=== PATIENT | male | born 1980 | race Caucasian/White ===

== ENCOUNTER 2018-07-04 19:33 | Emergency (ER) | payer OTHER ==
[2018-07-04] MEDS ORDERED: ONDANSETRON 4 MG/2 ML VIAL ONE (20:49)
[2018-07-04] MEDS ORDERED: FAMOTIDINE 20 MG/2 ML VIAL IV ONE (20:49)
[2018-07-04] MEDS ORDERED: NA CHLORIDE 0.9% 1,000 ML ONE (20:49)
[2018-07-04 21:11] LABS: Absolute Lymphocytes (CBC) 2.1 K/uL (0.7-4.9); Absolute Monocytes 0.7 K/uL (0.1-1.3); Absolute Neutrophil 6.1 K/uL (1.8-8.0); Basophils % 0.7 % (0-1.3); Eosinophils % 3.2 % (0-4.4); Lymphocytes % 22.6 % (15.3-44.8); MCH 32.2 pg (27.0-35.0); MPV 8.1 fL (7.6-11.3); Monocytes % 7.4 % (3.3-12.3); RBC Red Blood Cell Count 5.05 M/uL (4.33-5.43)
--- NOTE | 2018-07-04 21:15 | RAD REPORT ---
EXAM DESCRIPTION: US - Abdomen Exam Limited - 07/04/2018 8:47 pm CLINICAL HISTORY: Abdominal pain, epigastric pain COMPARISON: None. FINDINGS: No gallstones, sludge or other abnormalities within the gallbladder lumen. There is no wal l thickening or pericholecystic fluid. No common duct stone or biliary tree dilatation identified. Partially imaged liver shows a coarsened increased echogenicity. This may reflect diffuse fatty infil tration. IMPRESSION: Normal gallbladder and biliary tree ultrasound. Questionable fatty infiltration of a partially imaged liver.
[2018-07-04 21:27] LABS: Bilirubin Direct 0.2 mg/dL (0-0.2); Bilirubin Total 0.6 mg/dL (0.2-1.0); Protein, Total 7.6 g/dL (6.4-8.2)
[2018-07-04 21:31] LABS: Urine Bacteria <20 /HPF (NONE SEEN); Urine RBC <5 /HPF (NONE SEEN)
[2018-07-04 21:32] LABS: Urine Blood NEGATIVE (NEG); Urine Glucose NEGATIVE (NEG); Urine Protein NEGATIVE (NEG); Urine pH 6.5 (5.0-7.0)
[2018-07-04 21:32] LABS: Urine Amorphous Sediment 2+ /HPF (NONE SEEN); Urine Culture Reflex Order NOT NEEDED; Urine Mucus 1+ /HPF (NONE SEEN)
--- NOTE | 2018-07-04 22:11 | RAD REPORT ---
EXAM DESCRIPTION: CT - Abdomen Pelvis W Contrast - 07/04/2018 9:48 pm CLINICAL HISTORY: Abdominal pain COMPARISON: None. TECHNIQUE: Biphasic, helical CT imaging of the abdomen and pelvis was performed following 100 ml non -ionic IV contrast. No oral contrast. All CT scans are performed using dose optimization technique as appropriate and may include automated exposure control or mA/KV adjustment according to patient size. FINDINGS: No suspicious findings in the lung bases. Diffuse fatty infiltration of the liver present. No focal liver lesion. Spleen and pancreas are unrem arkable. Gallbladder and biliary tree are also without suspicious finding. Symmetric renal function is seen with no hydronephrosis or suspicious renal mass. No pyelonephritis o r acute renal parenchymal process. No adrenal abnormality. Contracted urinary bladder shows no suspic ious finding. Prostate gland and seminal vesicles are normal. No dilated bowel loops or bowel wall thickening. Appendix is normal. No free air, free fluid or infla mmatory stranding. No mass or bulky lymphadenopathy. Small bilateral fat filled inguinal hernias are present. No suspicious bony findings. IMPRESSION: Contrast enhanced CT abdomen and pelvis showing no significant or suspicious finding. Mild diffuse fatty infiltration of the liver.
--- NOTE | 2018-07-04 22:41 | ER ---
Nurse's Notes [facility] Name: Lanre Garcia Age: 38 yrs Sex: Male : 1980 Arrival Date: 07/04/2018 Time: 19:49 Bed 17 Private MD: Diagnosis: Unspecified abdominal pain Presentation: 07/04 19:49 Presenting complaint: Patient states: Cough, congestion, upper abdominal pain, and aj nausea that started today. Transition of care: patient was not received from another setting of care. Onset of symptoms was July 04, 2018. Risk Assessment: Do you want to hurt yourself or someone else? Patient reports no desire to harm self or others. Initial Sepsis Screen: Does the patient meet any 2 criteria? No. Patient's initial sepsis screen is negative. Does the patient have a suspected source of infection? No. Patient's initial sepsis screen is negative. Care prior to arrival: None. 19:49 Method Of Arrival: Ambulatory aj 19:49 Acuity: UMA 3 aj Triage Assessment: 19:50 General: Appears in no apparent distress. comfortable, Behavior is calm, cooperative, aj appropriate for age. Pain: Complains of pain in right upper quadrant and left upper quadrant. EENT: Reports nasal congestion nasal discharge. Respiratory: Reports cough that is Airway is patent Respiratory effort is even, unlabored, Respiratory pattern is regular, symmetrical, Breath sounds are clear bilaterally. GI: Reports upper abdominal pain, nausea. Derm: Skin is intact, is healthy with good turgor, Skin is pink, warm \T\ dry. normal. Historical: - Allergies: 19:50 No Known Allergies; aj - Home Meds: 19:50 None [Active]; aj - PMHx: 19:50 None; aj - PSHx: 19:50 None; aj - Immunization history:: Flu vaccine is not up to date. - Social history:: Smoking status: Patient/guardian denies using tobacco. - Ebola Screening: : Patient negative for fever greater than or equal to 101.5 degrees Fahrenheit, and additional compatible Ebola Virus Disease symptoms Patient denies exposure to infectious person Patient denies travel to an Ebola-affected area in the 21 days before illness onset No symptoms or risks identified at this time. Screenin:22 Abuse screen: Denies threats or abuse. Nutritional screening: No deficits noted. jd3 Tuberculosis screening: No symptoms or risk factors identified. Fall Risk Ambulatory Aid- None/Bed Rest/Nurse Assist (0 pts). Gait- Normal/Bed Rest/Wheelchair (0 pts) Mental Status- Oriented to own ability (0 pts). Total Morris Fall Scale indicates No Risk (0-24 pts). Assessment: 20:26 General: Appears in no apparent distress. uncomfortable, Behavior is calm, cooperative, jd3 appropriate for age. Pain: Complains of pain in right upper quadrant and left upper quadrant Quality of pain is described as aching. Neuro: Level of Consciousness is awake, alert, obeys commands, Oriented to person, place, time, situation. Cardiovascular: Heart tones S1 S2 present Capillary refill < 3 seconds Patient's skin is warm and dry. Respiratory: Airway is patent Respiratory effort is even, unlabored, Respiratory pattern is regular, symmetrical, Breath sounds are clear bilaterally. GI: Abdomen is round non-distended, Bowel sounds present X 4 quads. Abd is soft X 4 quads Abdomen is tender to palpation in right upper quadrant and left upper quadrant. : No signs and/or symptoms were reported regarding the genitourinary system. EENT: No signs and/or symptoms were reported regarding the EENT system. Derm: Skin is intact, Skin is dry, Skin is normal, Skin temperature is warm. Musculoskeletal: Circulation, motion, and sensation intact. Range of motion: intact in all extremities. 21:17 Reassessment: Patient appears in no apparent distress at this time. Patient and/or jd3 family updated on plan of care and expected duration. Pain level reassessed. Patient is alert, oriented x 3, equal unlabored respirations, skin warm/dry/pink. 21:38 Reassessment: Patient appears in no apparent distress at this time. Patient and/or jd3 family updated on plan of care and expected duration. Pain level reassessed. Patient is alert, oriented x 3, equal unlabored respirations, skin warm/dry/pink. 22:41 Reassessment: Patient appears in no apparent distress at this time. Patient and/or jd3 family updated on plan of care and expected duration. Pain level reassessed. Patient is alert, oriented x 3, equal unlabored respirations, skin warm/dry/pink. 22:51 Reassessment: Patient appears in no apparent distress at this time. Patient and/or jd3 family updated on plan of care and expected duration. Pain level reassessed. Patient is alert, oriented x 3, equal unlabored respirations, skin warm/dry/pink. Vital Signs: 19:50 BP 118 / 82; Pulse 69; Resp 19; Temp 99.4(O); Pulse Ox 98% on R/A; Weight 120.2 kg; aj Height 6 ft. 0 in. (182.88 cm); 21:38 BP 119 / 76; Pulse 71; Resp 16 S; Pulse Ox 100% on R/A; jd3 22:42 BP 118 / 78; Pulse 72; Resp 17 S; Pulse Ox 99% on R/A; jd3 19:50 Body Mass Index 35.94 (120.20 kg, 182.88 cm) aj ED Course: 19:49 Patient arrived in ED. aj 19:50 Triage completed. aj 19:50 Arm band placed on left wrist. Patient placed in waiting room, Patient notified of wait aj time. Labs ordered per protocol. 20:14 Matheus Hoskins RN is Primary Nurse. jd3 20:14 Castro Escamilla PA is PHCP. cp 20:14 Rahat Fuller MD is Attending Physician. cp 20:22 Patient has correct armband on for positive identification. Bed in low position. Call jd3 light in reach. Side rails up X 1. Adult w/ patient. 20:48 US Abdomen Limited: RUQ/epigastric In Process Unspecified. EDMS 21:17 Inserted saline lock: 20 gauge in right antecubital area, using aseptic technique. jd3 Blood collected. placed by Replaced by [facility]. 21:[address] via wheelchair. nj 21:40 XRAY Chest (1 view) In Process Unspecified. EDMS 21:49 CT Abd/Pelvis - W/Contrast: no oral contrast In Process Unspecified. EDMS 21:56 PHCP role handed off by Castro Escamilla PA pm1 21:56 Christian Sanchez NP is PHCP. pm1 22:42 No provider procedures requiring assistance completed. jd3 22:50 IV discontinued, intact, bleeding controlled, No redness/swelling at site. Pressure jd3 dressing applied. Administered Medications: 21:11 Drug: Zofran 4 mg Route: IVP; Site: right antecubital; jd3 22:16 Follow up: Response: No adverse reaction jd3 21:11 Drug: Pepcid 20 mg Route: IVP; Site: right antecubital; jd3 22:16 Follow up: Response: No adverse reaction jd3 21:11 Drug: NS 0.9% 1000 ml Route: IV; Rate: 1 bolus; Site: right antecubital; jd3 22:51 Follow up: Response: No adverse reaction; IV Status: Completed infusion; IV Intake: jd3 1000ml 22:44 Drug: GI Cocktail without - (Maalox Suspension 30 ml, Lidocaine Liquid 2 % 15 ea ml) Route: PO; 22:51 Follow up: Response: Medication administered at discharge. jd3 Intake: 22:51 IV: 1000ml; Total: 1000ml. jd3 Outcome: 22:40 Discharge ordered by . pm1 22:50 Discharged to home ambulatory, with family. jd3 22:50 Condition: stable 22:50 Discharge instructions given to patient, family, Instructed on discharge instructions, follow up and referral plans. medication usage, Demonstrated understanding of instructions, follow-up care, medications, Prescriptions given X 2. 22:51 Patient left the ED. jd3 Signatures: Dispatcher [employer] EDMS Enedina Cunningham RN RN Castro Jain PA PA cp Marinas, Patrick, SONIA STUDIO OPERATIONS ENGINEER IN CHARGE pm1 Reddy Tan Elena, RN RN ea Davies, Jonathon, RN RN jd3
--- NOTE | 2018-07-04 22:41 | EDPHYS ---
Physician Documentation [facility] Name: Lanre Garcia Age: 38 yrs Sex: Male : 1980 Arrival Date: 07/04/2018 Time: 19:49 Bed 17 Private MD: ED Physician Rahat Fuller HPI: 07/04 20:00 This 38 yrs old Male presents to ER via Ambulatory with complaints of Cough, cp Congestion, Abdominal Pain, Nausea. 20:00 The patient or guardian reports cough, that is intermittent, with no sputum. Onset: The cp symptoms/episode began/occurred 1-2 weeks. 20:00 Severity of symptoms: in the emergency department the symptoms are unchanged. cp 20:00 The patient presents with abdominal pain in the epigastric area. cp 20:00 Onset: The symptoms/episode began/occurred today. The symptoms do not radiate. cp Associated signs and symptoms: Pertinent positives: nausea, Pertinent negatives: anorexia, chest pain, constipation, diarrhea, fever, testicular pain, vomiting. The symptoms are described as sharp. Historical: - Allergies: 19:50 No Known Allergies; aj - Home Meds: 19:50 None [Active]; aj - PMHx: 19:50 None; aj - PSHx: 19:50 None; aj - Immunization history:: Flu vaccine is not up to date. - Social history:: Smoking status: Patient/guardian denies using tobacco. - Ebola Screening: : Patient negative for fever greater than or equal to 101.5 degrees Fahrenheit, and additional compatible Ebola Virus Disease symptoms Patient denies exposure to infectious person Patient denies travel to an Ebola-affected area in the 21 days before illness onset No symptoms or risks identified at this time. ROS: 20:05 Constitutional: Negative for body aches, chills, fever, poor PO intake. cp 20:05 Eyes: Negative for injury, pain, redness, and discharge. cp 20:05 ENT: Negative for drainage from ear(s), ear pain, sore throat, difficulty swallowing, difficulty handling secretions. 20:05 Cardiovascular: Negative for chest pain, edema, palpitations. 20:05 Respiratory: Positive for cough, with no reported sputum, Negative for shortness of breath, wheezing. 20:05 Abdomen/GI: Positive for abdominal pain, nausea, Negative for vomiting, diarrhea, constipation, anorexia, black/tarry stool, rectal bleeding. 20:05 Back: Negative for pain at rest, pain with movement, radiated pain. 20:05 : Negative for urinary symptoms, flank pain. 20:05 Skin: Negative for cellulitis, rash. 20:05 Neuro: Negative for altered mental status, headache, weakness. 20:05 All other systems are negative. Exam: 20:10 Constitutional: The patient appears in no acute distress, alert, awake, cp non-diaphoretic, non-toxic, well developed, well nourished. 20:10 Head/Face: Normocephalic, atraumatic. cp 20:10 Eyes: Periorbital structures: appear normal, Conjunctiva: normal, no exudate, no injection, Sclera: no appreciated abnormality, Lids and lashes: appear normal, bilaterally. 20:10 ENT: External ear(s): are unremarkable, Ear canal(s): are normal, clear, TM's: bulging, is not appreciated, bilaterally, dullness, bilaterally, erythema, is not appreciated, bilaterally, Nose: is normal, Mouth: Lips: moist, Oral mucosa: pink and intact, moist, Posterior pharynx: is normal, airway is patent, no erythema, no exudate. 20:10 Neck: ROM/movement: is normal, is supple, without pain, no range of motions limitations, no meningismus, no nuchal rigidity, Lymph nodes: no appreciated lymphadenopathy. 20:10 Chest/axilla: Inspection: normal, Palpation: is normal, no crepitus, no tenderness. 20:10 Cardiovascular: Rate: normal, Rhythm: regular, Edema: is not appreciated, JVD: is not appreciated. 20:10 Respiratory: the patient does not display signs of respiratory distress, Respirations: normal, no use of accessory muscles, no retractions, no splinting, no tachypnea, labored breathing, is not present, Breath sounds: are clear throughout, no decreased breath sounds, no stridor, no wheezing. 20:10 Abdomen/GI: Inspection: abdomen appears normal, Bowel sounds: active, all quadrants, Palpation: soft, in all quadrants, moderate abdominal tenderness, in the epigastric area and right upper quadrant, rebound tenderness, is not appreciated, involuntary guarding, is not appreciated. 20:10 Back: CVA tenderness, is absent. 20:10 Skin: cellulitis, is not appreciated, no rash present. 20:10 Neuro: Orientation: to person, place \T\ time. Mentation: is normal, Cerebellar function: is grossly normal, Motor: moves all fours, strength is normal, Sensation: is normal. Vital Signs: 19:50 BP 118 / 82; Pulse 69; Resp 19; Temp 99.4(O); Pulse Ox 98% on R/A; Weight 120.2 kg; aj Height 6 ft. 0 in. (182.88 cm); 21:38 BP 119 / 76; Pulse 71; Resp 16 S; Pulse Ox 100% on R/A; jd3 22:42 BP 118 / 78; Pulse 72; Resp 17 S; Pulse Ox 99% on R/A; jd3 19:50 Body Mass Index 35.94 (120.20 kg, 182.88 cm) aj MDM: 20:14 Patient medically screened. cp 20:30 Differential Diagnosis: Bronchitis Influenza Upper Respiratory Infection Pneumonia cp Other cholecystitis, gastritis. 22:39 Data reviewed: vital signs. Data interpreted: Pulse oximetry: on room air is 100 %. pm1 Interpretation: normal. Counseling: I had a detailed discussion with the patient and/or guardian regarding: the historical points, exam findings, and any diagnostic results supporting the discharge/admit diagnosis, lab results, radiology results, the need for outpatient follow up, for definitive care, a booster pump oiler, to return to the emergency department if symptoms worsen or persist or if there are any questions or concerns that arise at home. 07/04 19:53 Order name: Flu; Complete Time: 20:55 07/04 19:53 Order name: Strep; Complete Time: 20:55 07/04 20:20 Order name: Throat Culture EDMD 07/04 20:26 Order name: Basic Metabolic Panel; Complete Time: 21:48 cp 07/04 21:48 Interpretation: Normal except: GFR 84. cp 07/04 20:26 Order name: CBC with Diff; Complete Time: 21:48 cp 07/04 20:26 Order name: Creatinine for Radiology; Complete Time: 21:48 07/04 20:26 Order name: Hepatic Function; Complete Time: 21:48 07/04 21:49 Interpretation: Normal except: GLOB 3.6. cp 07/04 20:26 Order name: Lipase; Complete Time: 21:48 cp 07/04 21:49 Interpretation: Within normal limits: LIP 113. cp 07/04 20:26 Order name: Urine Microscopic Only; Complete Time: 21:48 cp 07/04 21:49 Interpretation: Normal except: SQEPI 5-10; AMORPH 2+. cp 07/04 20:28 Order name: US Abdomen Limited: RUQ/epigastric; Complete Time: 21:48 cp 07/04 20:55 Order name: CT Abd/Pelvis - W/Contrast: no oral contrast; Complete Time: 22:21 cp 07/04 21:14 Order name: Urine Dipstick--Ancillary (enter results); Complete Time: 21:48 gm 07/04 21:21 Order name: XRAY Chest (1 view) 07/04 20:26 Order name: IV Saline Lock; Complete Time: 21:18 cp 07/04 20:26 Order name: Labs collected and sent; Complete Time: 21:18 cp 07/04 20:26 Order name: Urine Dipstick-Ancillary (obtain specimen); Complete Time: 21:18 cp Administered Medications: 21:11 Drug: Zofran 4 mg Route: IVP; Site: right antecubital; jd3 22:16 Follow up: Response: No adverse reaction jd3 21:11 Drug: Pepcid 20 mg Route: IVP; Site: right antecubital; jd3 22:16 Follow up: Response: No adverse reaction jd3 21:11 Drug: NS 0.9% 1000 ml Route: IV; Rate: 1 bolus; Site: right antecubital; jd3 22:51 Follow up: Response: No adverse reaction; IV Status: Completed infusion; IV Intake: jd3 1000ml 22:44 Drug: GI Cocktail without - (Maalox Suspension 30 ml, Lidocaine Liquid 2 % 15 ea ml) Route: PO; 22:51 Follow up: Response: Medication administered at discharge. jd3 Disposition: 07/05 04:28 Co-signature as Attending Physician, Rahat Fuller MD I agree with the assessment and tw4 plan of care. Disposition: 07/04/18 22:40 Discharged to Home. Impression: Unspecified abdominal pain. - Condition is Stable. - Discharge Instructions: Abdominal Pain, Adult. - Prescriptions for Pepcid 20 mg Oral Tablet - take 1 tablet by ORAL route every 12 hours for 10 days; 20 tablet. Zofran 4 mg Oral Tablet - take 1 tablet by ORAL route every 12 hours As needed; 20 tablet. - Medication Reconciliation Form, Thank You Letter form. - Follow up: Emergency Department; When: As needed; Reason: Worsening of condition. Follow up: Private Physician; When: 2 - 3 days; Reason: Recheck today's complaints, Continuance of care, Re-evaluation by your physician. - Problem is new. - Symptoms have improved. Signatures: Dispatcher [employer] EDMS Enedina Cunningham, RN RN Castro Jain PA PA cp Christian Sanchez, SONIA IT SECURITY ARCHITECT pm1 Mitzi Neil RN RN Matheus Redding RN RN jd3 Rahat Fuller MD MD tw4 Corrections: (The following items were deleted from the chart) 07/04 22:51 22:40 07/04/2018 22:40 Discharged to Home. Impression: Unspecified abdominal pain. jd3 Condition is Stable. Forms are Medication Reconciliation Form, Thank You Letter, Antibiotic Education, Prescription Opioid Use. Follow up: Emergency Department; When: As needed; Reason: Worsening of condition. Follow up: Private Physician; When: 2 - 3 days; Reason: Recheck today's complaints, Continuance of care, Re-evaluation by your physician. Problem is new. Symptoms have improved. pm1
[2018-07-04] MEDS ORDERED: LIDOCAINE VISCOUS 2% SOLN 15 ML UDC ONE (22:50)
[2018-07-04] MEDS ORDERED: MAGNE/ALUM HYDROXD 30 ML UCUP ONE (22:50)
--- NOTE | 2018-07-05 07:34 | RAD REPORT ---
EXAM DESCRIPTION: RAD - Chest Single View - 07/04/2018 9:40 pm CLINICAL HISTORY: Cough and congestion, upper abdominal pain COMPARISON: None. TECHNIQUE: AP portable chest image was obtained 2135 hours . FINDINGS: Lungs are clear. Heart and vasculature are normal. No measurable pleural effusion and no p neumothorax. No acute bony abnormality seen. No acute aortic findings suspected. IMPRESSION: No acute cardiopulmonary process.
== END 2018-07-04 22:51 | disposition home or self-care (01) ==
LOC: ER 19:33
DX: R10.13 Epigastric pain (principal)
CPT/HCPCS: 36415; 71045; 74177; 76705; 80048; 80076; 81003; 81015; 83690; 85025; 87070; 87081; 87804; 96361; 96374; 96375; 99284; J2405; J7030; Q9967

== ENCOUNTER 2024-10-02 07:04 | Emergency (ER) | payer OTHER ==
--- OUTSIDE RECORDS SUMMARY | 2024-10-02 07:09 | XMS REPORT | Continuity of Care Document ---
Author Name Unknown Address [address] [facility] [address] [place] [address] [facility] Address [address] [facility]. [address] [place] [address] Care Team Providers Care Development Scientist Name Role Phone SERGEY CHAIREZ Primary Care Physician Unavailab Ousmane Mehta Attending Clinician Unavailable MARIAJOSE CHAND Attending Clinician Unavailable Mj Khan Attending Clinician [phone] Unknown, Attending Attending Clinician Unavailab MJ Barrow Attending Clinician Unavailable Sergey Chairez MD Attending Clinician [phone] SERGEY CHAIREZ Attending Clinician Unavailable Lab, Chema Cbc Attending Clinician Unavailable Mariely Marcus MD Attending Clinician [phone] MARIELY MARCUS Attending Clinician Unavailable KIMBERLYN ROSENBERG Attending Clinician Unavailable OLEGARIO MEEK Attending Clinician Unavailable Sergey Chairez MD Attending Clinician [phone] ENEDINA HENDERSON Attending Clinician Unavailable Enedina Henderson MD Attending Clinician [phone] Unknown, Attending Attending Clinician Unavailab martha Doctor Unassigned, Kulm Attending Clinician U FAYE Moses Attending Clinician Unavailable RENY BIRD Attending Clinician Unavailable Reny Lubin Attending Clinician [phone] Magdalena PLAZA, Faye Greco Attending Clinician [phone] GUILLERMINA SMALL Attending Clinician UnaJOSÉ LUIS Valle Attending Clinician Unavaila mat Small DPM, Gulilermina A Attending Clinician + LEATHA PERALTA Attending Clinician Unavailable Lab, Ang - Db Attending Clinician Unavailable Kathryn LIQUEFACTION AND REGASIFICATION HELPER, Leatha Attending Clinician [phone] Otilio CANVAS GOODS FABRICATOR, Joseph Monet Attending Clinician Unavaila mat Calderón PT, Vanna Valentino Attending Clinician Unavailab martha Whalen PABenita Attending Clinician [phone] BENITA WHALEN Attending Clinician Unavailable NIA MON Attending Clinician Unavailable Only, Charlette Fam Cbc Test Attending Clinician Unamarcio Romero MD, Lela Sue Attending Clinician + [phone] LELA ROMERO Attending Clinician UnaJESICA Nevarez Attending Clinician Unavailable Lab, Adc Fam Pob I Attending Clinician Unavailab martha Vazquez LIQUEFACTION AND REGASIFICATION HELPER, Drea Attending Clinician [phone] Cuauhtemoc RN, Deysi Dillard Attending Clinician Unavailab martha Pettyb1, [facility] Attending Clinician Unagretta ailable Payers Payer Name Policy Type Policy Number Effective Date Expirati on Date Source [employer] 53 [id number] [facility] M[employer]IPLAN GENERIC [id number] 2018 00:00:00 Problems Condition Name Condition Details Condition Category Status Onset Date Resolution Date Last Treatment Date Treating Clinician Comments Source Type 2 diabetes mellitus without complicati on, without long-term current use of insulin Type 2 diabetes mellitus without complicati on, without long-term current use of insulin Disease Active 03-20 00:00: 00 [facility] [place] [facility] Upper respirator y tract infection, unspecifie d type Upper respirator y tract infection, unspecifie d type Disease Active 11-13 00:00: 00 [facility] [place] [facility] Sore throat Sore throat Disease Active 11-13 00:00: 00 [facility] [place] [facility] Nausea Nausea Disease Active 424 00:00: 00 [facility] [place] [facility] Attention deficit disorder (ADD) without hyperactiv ity Attention deficit disorder (ADD) without hyperactiv ity Disease Active 3 00:00: 00 [facility] [place] [facility] Hypogonadi sm in male Hypogonadi sm in male Disease Active 3-23 00:00: 00 [facility] [place] [facility] Chest pain with minimal risk for cardiac etiology Chest pain with minimal risk for cardiac etiology Disease Active 2014-07 0-04 00:00: 00 [facility] [place] [facility] [id number] Obesity, Class III, BMI 40-49.9 (morbid obesity) Problem [facility] [id number] RLS (restless legs syndrome) Problem [facility] Testicular hypofuncti on Low testostero ne in male Problem [facility] Allergies, Adverse Reactions, Alerts Allergy Name Allergy Type Status Severity Reaction(s) Onset Date Inactive Date Treating Clinician Comments Source ACETAMIN OPHEN-CO DEINE DRUG Active [facility] 2023-07 00:00: 00 [facility] [place] [facility] Acetamin ophen-Co deine Propensi ty to adverse reaction s to drug Active [facility] 2023-07 00:00: 00 [facility] [place] [facility] NO KNOWN ALLERGIE S Drug Class Active [facility] Social History Social Habit Start Date Stop Date Quantity Comments Source History of Tobacco Use [facility] Sex Assigned At [facility] Gender identity [facility] Alcoholic beverage intake 2024-07-07 00:00:00 2024-07-07 00:00:00 Current non-drinker of alcohol (finding) [facility] Tobacco use and exposure 2024-01-17 00:00:00 2024-01-17 00:00:00 Smokeless tobacco non-user [facility] Cigarettes smoked current (pack per day) - Reported 2024-01-17 00:00:00 2024-01-17 00:00:00 [facility] Cigarette pack-years 2024-01-17 00:00:00 2024-01-17 00:00:00 [facility] Alcohol intake 2023-08-24 00:00:00 2023-08-24 00:00:00 Current non-drinker of alcohol (finding) [facility] History of Social function 2023-04-16 00:00:00 2023-04-16 00:00:00 [facility] Exposure to SARS-CoV-2 (event) 2022-12-03 00:00:00 2022-12-13 13:27:00 Not sure [facility] Smoking Status Start Date Stop Date Source Never Smoker [facility] Ex-smoker 2024-01-17 00:00:00 2024-01-17 00:00:00 [facility] Medications Ordered Medication Name Filled Medication Name Start Date Stop Date Current Medication? Ordering Clinician Indication Dosage Frequency Signature (SIG) Comments Components Source Amoxicillin -Pot Clavulanate 875-125 MG Amoxicillin -Pot Clavulanate 875-125 MG 09-26 00:00: 00 No 1{table t} BID Amoxicilli n-Pot Clavulanat e 875-125 MG amoxicillin 500 mg tablet 2023-07 00:00: 00 07-18 05:59 :00 Yes [id number] 500mg Take 1 tablet by mouth in the morning and 1 tablet in the evening. Do all this for 10 days. [facility] [place] [facility] ofloxacin 0.3 % otic drops 2023-07 00:00: 00 07-15 05:59 :00 Yes [id number] 5[drp] Place 5 Drops in right ear in the morning and 5 Drops in the evening. Do all this for 7 days. [facility] testosteron e cypionate 200 mg/mL injection 2023-07 00:00: 00 Yes [id number] 200mg 1 mL by Intramuscu lar route every 2 (two) weeks. [facility] testosteron e cypionate (DEPO-TESTO STERONE) injection 200 mg 03-20 21:00: 00 03-20 20:19 :00 No [id number] 200mg 200 mg, Intramuscu lar, ONCE, 1 dose, On Sun03/20/24 at 1600, Routine [facility] semaglutide (OZEMPIC) 0.25 mg or 0.5 mg (2 mg/3 mL) PnIj 03-20 00:00: 00 Yes [id number] .25mg inject 0.25 mg under the skin weekly. [facility] testosteron e cypionate 200 mg/mL injection 03-20 00:00: 00 06-13 00:00 :00 No [id number] 200mg 1 mL by Intramuscu lar route every 2 (two) weeks. [facility] tadalafiL 20 mg tablet 03-14 00:00: 00 Yes [id number] 20mg Take 1 tablet by mouth as needed for Erectile dysfunctio n. [facility] diclofenac 75 mg EC tablet 01-16 00:00: 00 Yes [id number] 75mg Take 1 tablet by mouth in the morning and 1 tablet at noon and 1 tablet in the evening. Take with meals. [facility] methylPREDN ISolone (MEDROL, ZENA,) 4 mg tablets 01-16 00:00: 00 03-20 00:00 :00 No [id number] Take by mouth SEE-INSTRU CTIONS. follow package directions [facility] SILDENAFIL 100 mg tablet - 00:00: 00 03-14 00:00 :00 No [id number] 100mg TAKE 1 TABLET BY MOUTH NEEDED FOR OTHER (SEXUAL ACTIVITY). [facility] bromphenira mine-pseudo ephedrine-D M (BROMFED DM) 2-30-10 mg/5 mL syrup 08-24 00:00: 00 Yes [id number] 10mL Take 10 mL by mouth 4 (four) times daily as needed for Cold symptoms. [facility] benzonatate 100 mg capsule 08-24 00:00: 00 Yes [id number] 200mg Take 2 capsules by mouth every 8 (eight) hours as needed for Cough. [facility] ofloxacin 0.3 % otic drops 2022-07 2-23 00:00: 00 07-22 05:59 :00 No [id number] 5[drp] Place 5 Drops in right ear in the morning and 5 Drops in the evening. Do all this for 7 days. [facility] acetaminoph en-codeine 300-30 mg tablet 2022-07 0- 00:00: 00 Yes [id number] 1{tbl} Take 1 tablet by mouth every 4 (four) hours as needed for Pain (scale 4-6). Indication s: chronic pain [facility] tiZANidine 4 mg tablet 04-16 00:00: 00 Yes [id number] 4mg Take 1 tablet by mouth every 6 (six) hours as needed for Pain (scale 4-6). [facility] methylPREDN ISolone (MEDROL, ZENA,) 4 mg tablets 04-16 00:00: 00 03-20 00:00 :00 No [id number] Take by mouth SEE-INSTRU CTIONS. follow package directions [facility] HYDROcodone -acetaminop hen 7.5-325 mg per tablet 04-16 00:00: 00 04-24 04:59 :00 No [id number] 1{tbl} Take 1 tablet by mouth every 6 (six) hours as needed for Pain for up to 7 days. Indication s: acute pain [facility] diclofenac 75 mg EC tablet 01-30 00:00: 00 01-16 00:00 :00 No [id number] 75mg Take 1 tablet by mouth in the morning and 1 tablet at noon and 1 tablet in the evening. Take with meals. [facility] tiZANidine 4 mg tablet 01-30 00:00: 00 04-16 00:00 :00 No [id number] 4mg Take 1 tablet by mouth every 6 (six) hours as needed for Pain (scale 4-6). [facility] ciprofloxac in HCl (CIPRO) 500 mg tablet 12-14 00:00: 00 01-30 00:00 :00 No [id number] 500mg Take 1 tablet by mouth every 12 (twelve) hours. [facility] omeprazole 40 mg capsule 11-13 11:39: 43 Yes 40mg Take 1 capsule by mouth in the morning. [facility] ibuprofen 600 mg tablet 11-13 00:00: 00 11-28 04:59 :00 No [id number] 600mg Take 1 tablet by mouth every 6 (six) hours as needed for Temp > 38.5 C for up to 14 days. [facility] bromphenira mine-pseudo ephedrine-D M (BROMFED DM) 2-30-10 mg/5 mL syrup 11-13 00:00: 00 11-24 04:59 :00 No [id number] 10mL Take 10 mL by mouth 4 (four) times daily as needed for Congestion /Allergies for up to 10 days. [facility] ondansetron (ZOFRAN) 4 mg tablet 11-13 00:00: 11-24 04:59 :00 No [id number] 4mg Take 1 tablet by mouth every 8 (eight) hours as needed for Nausea and Vomiting (N/V) for up to 10 days. [facility] dexamethaso ne (DECADRON PHOSPHATE) injection 4 mg 10-13 17:00: 00 10-13 15:51 :00 No [id number] 4mg [facility] sildenafiL (VIAGRA) 100 mg tablet 10-02 00:00: 00 10-08 00:00 :00 No [id number] 100mg Take 1 tablet by mouth as needed for Other (sexual activity). [facility] azithromyci n 250 mg tablet 10-02 00:00: 00 01-30 00:00 :00 No [id number] 250mg Take 1 tablet by mouth in the morning. [facility] zolpidem (AMBIEN) 10 mg tablet 09-13 00:00: 00 Yes [id number] 10mg Take 1 tablet by mouth at bedtime as needed for Insomnia. [facility] bromphenira mine-pseudo ephedrine-D M (BROMFED DM) 2-30-10 mg/5 mL syrup 08-22 00:00: 00 01-30 00:00 :00 No [id number] 10mL Take 10 mL by mouth 4 (four) times daily as needed for Congestion /Allergies . [facility] benzonatate (TESSALON PERLES) 100 mg capsule 08-22 00:00: 00 11-13 00:00 :00 No [id number] Take 1-2 capsules three times a day as needed for cough. [facility] diclofenac 75 mg EC tablet 2021-07 00:00: 00 08-22 00:00 :00 No [id number] 75mg Take 1 tablet by mouth in the morning and 1 tablet at noon and 1 tablet in the evening. Take with meals. [facility] tiZANidine 4 mg tablet 2021-07 00:00: 00 08-22 00:00 :00 No [id number] 4mg Take 1 tablet by mouth every 6 (six) hours as needed for Pain (scale 4-6). [facility] amoxicillin -clavulanat e (AUGMENTIN) 875-125 mg per tablet 2021-07 00:00: 00 08-22 00:00 :00 No [id number] 1{tbl} Take 1 tablet by mouth in the morning and 1 tablet in the evening. [facility] omeprazole 40 mg capsule 27 08:13: 04 Yes 40mg Take 40 mg by mouth daily. [facility] ketoconazol e 2 % shampoo 3-10 00:00: 00 08-22 00:00 :00 No [id number] Apply to area(s) once daily as needed for Itching. [facility] TESTOSTERON E CYPIONATE 200 mg/mL injection 4-25 00:00: 00 03-14 00:00 :00 No ADMINISTER 1.5 ML IN THE MUSCLE EVERY 2 WEEKS [facility] testosteron e cypionate (DEPO-TESTO STERONE) injection 260 mg 2016-11-17 19:15: 00 Yes 260mg [facility] Pseudoeph-B romphen-DM 30-1-20 MG/5ML Pseudoeph-B romphen-DM 30-1-20 MG/5ML No 5{ml_as _needed } QID Pseudoeph- Bromphen-D M 30-1-20 MG/5ML Fluticasone Propionate 50 MCG/ACT Fluticasone Propionate 50 MCG/ACT No 1{spray _in_eac h_nostr il} BID Fluticason e Propionate 50 MCG/ACT Immunizations Ordered Immunization Name Filled Immunization Name Date Status Comments Source SARS-COV-2 COVID-19 PFIZER VACCINE 2020-10-28 00:00:00 Completed [facility] SARS-COV-2 COVID-19 PFIZER VACCINE 2020-10-28 00:00:00 Completed [facility] SARS-COV-2 COVID-19 PFIZER VACCINE 2020-10-28 00:00:00 Completed [facility] SARS-COV-2 COVID-19 PFIZER VACCINE 2020-10-28 00:00:00 Completed [facility] SARS-COV-2 COVID-19 PFIZER VACCINE 2020-10-28 00:00:00 Completed [facility] SARS-COV-2 COVID-19 PFIZER VACCINE 2020-10-28 00:00:00 Completed [facility] SARS-COV-2 COVID-19 PFIZER VACCINE 2020-10-28 00:00:00 Completed [facility] SARS-COV-2 COVID-19 PFIZER VACCINE 2020-10-28 00:00:00 Completed [facility] SARS-COV-2 COVID-19 PFIZER VACCINE 2020-10-28 00:00:00 Completed [facility] SARS-COV-2 COVID-19 PFIZER VACCINE 2020-10-28 00:00:00 Completed [facility] SARS-COV-2 COVID-19 PFIZER VACCINE 2020-10-28 00:00:00 Completed [facility] SARS-COV-2 COVID-19 PFIZER VACCINE 2020-10-28 00:00:00 Completed [facility] SARS-COV-2 COVID-19 PFIZER VACCINE 2020-10-28 00:00:00 Completed [facility] SARS-COV-2 COVID-19 PFIZER VACCINE 2020-10-28 00:00:00 Completed [facility] SARS-COV-2 COVID-19 PFIZER VACCINE 2020-10-28 00:00:00 Completed [facility] SARS-COV-2 COVID-19 PFIZER VACCINE 2020-10-28 00:00:00 Completed [facility] SARS-COV-2 COVID-19 PFIZER VACCINE 2020-10-28 00:00:00 Completed [facility] SARS-COV-2 COVID-19 PFIZER VACCINE 2020-10-28 00:00:00 Completed [facility] SARS-COV-2 COVID-19 PFIZER VACCINE 2020-10-28 00:00:00 Completed [facility] SARS-COV-2 COVID-19 PFIZER VACCINE 2020-10-28 00:00:00 Completed [facility] SARS-COV-2 COVID-19 PFIZER VACCINE 2020-10-28 00:00:00 Completed [facility] SARS-COV-2 COVID-19 PFIZER VACCINE 2020-10-28 00:00:00 Completed [facility] SARS-COV-2 COVID-19 PFIZER VACCINE 2020-10-28 00:00:00 Completed [facility] SARS-COV-2 COVID-19 PFIZER VACCINE 2020-10-28 00:00:00 Completed [facility] SARS-COV-2 COVID-19 PFIZER VACCINE 2020-10-07 00:00:00 Completed [facility] SARS-COV-2 COVID-19 PFIZER VACCINE 2020-10-07 00:00:00 Completed [facility] SARS-COV-2 COVID-19 PFIZER VACCINE 2020-10-07 00:00:00 Completed [facility] SARS-COV-2 COVID-19 PFIZER VACCINE 2020-10-07 00:00:00 Completed [facility] SARS-COV-2 COVID-19 PFIZER VACCINE 2020-10-07 00:00:00 Completed [facility] SARS-COV-2 COVID-19 PFIZER VACCINE 2020-10-07 00:00:00 Completed [facility] SARS-COV-2 COVID-19 PFIZER VACCINE 2020-10-07 00:00:00 Completed [facility] SARS-COV-2 COVID-19 PFIZER VACCINE 2020-10-07 00:00:00 Completed [facility] SARS-COV-2 COVID-19 PFIZER VACCINE 2020-10-07 00:00:00 Completed [facility] SARS-COV-2 COVID-19 PFIZER VACCINE 2020-10-07 00:00:00 Completed [facility] SARS-COV-2 COVID-19 PFIZER VACCINE 2020-10-07 00:00:00 Completed [facility] SARS-COV-2 COVID-19 PFIZER VACCINE 2020-10-07 00:00:00 Completed [facility] SARS-COV-2 COVID-19 PFIZER VACCINE 2020-10-07 00:00:00 Completed [facility] SARS-COV-2 COVID-19 PFIZER VACCINE 2020-10-07 00:00:00 Completed [facility] SARS-COV-2 COVID-19 PFIZER VACCINE 2020-10-07 00:00:00 Completed [facility] SARS-COV-2 COVID-19 PFIZER VACCINE 2020-10-07 00:00:00 Completed [facility] SARS-COV-2 COVID-19 PFIZER VACCINE 2020-10-07 00:00:00 Completed [facility] SARS-COV-2 COVID-19 PFIZER VACCINE 2020-10-07 00:00:00 Completed [facility] SARS-COV-2 COVID-19 PFIZER VACCINE 2020-10-07 00:00:00 Completed [facility] SARS-COV-2 COVID-19 PFIZER VACCINE 2020-10-07 00:00:00 Completed [facility] SARS-COV-2 COVID-19 PFIZER VACCINE 2020-10-07 00:00:00 Completed [facility] SARS-COV-2 COVID-19 PFIZER VACCINE 2020-10-07 00:00:00 Completed [facility] SARS-COV-2 COVID-19 PFIZER VACCINE 2020-10-07 00:00:00 Completed [facility] SARS-COV-2 COVID-19 PFIZER VACCINE 2020-10-07 00:00:00 Completed [facility] SARS-COV-2 COVID-19 PFIZER VACCINE Unknown Completed [facility] SARS-COV-2 COVID-19 PFIZER VACCINE Unknown Completed [facility] SARS-COV-2 COVID-19 PFIZER VACCINE Unknown Completed [facility] SARS-COV-2 COVID-19 PFIZER VACCINE Unknown Completed [facility] SARS-COV-2 COVID-19 PFIZER VACCINE Unknown Completed [facility] SARS-COV-2 COVID-19 PFIZER VACCINE Unknown Completed [facility] SARS-COV-2 COVID-19 PFIZER VACCINE Unknown Completed [facility] SARS-COV-2 COVID-19 PFIZER VACCINE Unknown Completed [facility] SARS-COV-2 COVID-19 PFIZER VACCINE Unknown Completed [facility] SARS-COV-2 COVID-19 PFIZER VACCINE Unknown Completed [facility] SARS-COV-2 COVID-19 PFIZER VACCINE Unknown Completed [facility] SARS-COV-2 COVID-19 PFIZER VACCINE Unknown Completed [facility] SARS-COV-2 COVID-19 PFIZER VACCINE Unknown Completed [facility] SARS-COV-2 COVID-19 PFIZER VACCINE Unknown Completed [facility] SARS-COV-2 COVID-19 PFIZER VACCINE Unknown Completed [facility] SARS-COV-2 COVID-19 PFIZER VACCINE Unknown Completed [facility] SARS-COV-2 COVID-19 PFIZER VACCINE Unknown Completed [facility] Vital Signs Vital Name Observation Time Observation Value Comments S ource height 2024-09-26 15:15:00 72 [in_i] Commo n [facility] weight 2024-09-26 15:15:00 292.0 [lb_av] Co mmon [facility] temperature 2024-09-26 15:15:00 98.6 [degF] Com mon [facility] bmi 2024-09-26 15:15:00 39.6 kg/m2 Commo n [facility] oximetry 2024-09-26 15:15:00 95 % Comm n [facility] blood pressure systolic 2024-09-26 15:15:00 122 mm[Hg] [facility] blood pressure diastolic 2024-09-26 15:15:00 70 mm[Hg] Common [facility] Systolic blood pressure 2024-07-07 16:59:00 126 mm[Hg] [facility] Diastolic blood pressure 2024-07-07 16:59:00 85 mm[Hg] [facility] Heart rate 2024-07-07 16:59:00 87 /[facility] temperature 2024-07-07 16:59:00 36.67 Nadine [facility] Respiratory rate 2024-07-07 16:59:00 14 /min [facility] Body height 2024-07-07 16:59:00 182.9 cm [facility] weight 2024-07-07 16:59:00 133.72 kg [facility] BMI 2024-07-07 16:59:00 39.98 kg/m2 [facility] Oxygen saturation in Arterial blood by Pulse oximetry 2024-07-07 16:59:00 96 /min [facility] Systolic blood pressure 2024-03-20 20:02:00 132 mm[Hg] [facility] Diastolic blood pressure 2024-03-20 20:02:00 83 mm[Hg] [facility] Heart rate 2024-03-20 20:02:00 78 /min [facility] Body height 2024-03-20 20:02:00 182.9 cm [facility] Body weight 2024-03-20 20:02:00 132.45 kg [facility] BMI 2024-03-20 20:02:00 39.60 kg/m2 [facility] Oxygen saturation in Arterial blood by Pulse oximetry 2024-03-20 20:02:00 97 /min [facility] Systolic blood pressure 2024-03-14 13:57:00 115 mm[Hg] [facility] Diastolic blood pressure 2024-03-14 13:57:00 85 mm[Hg] [facility] Heart rate 2024-03-14 13:57:00 77 /min [facility] Respiratory rate 2024-03-14 13:57:00 18 /min [facility] Body height 2024-03-14 13:57:00 182.9 cm [facility] Body weight 2024-03-14 13:57:00 132.45 kg [facility] BMI 2024-03-14 13:57:00 39.60 kg/m2 [facility] Oxygen saturation in Arterial blood by Pulse oximetry 2024-03-14 13:57:00 98 /min [facility] Systolic blood pressure 2024-01-17 19:56:00 120 mm[Hg] [facility] Diastolic blood pressure 2024-01-17 19:56:00 80 mm[Hg] [facility] Heart rate 2024-01-17 19:56:00 90 /min Unive [facility] Body height 2024-01-17 19:56:00 182.9 cm [facility] Body weight 2024-01-17 19:56:00 134.718 kg [facility] BMI 2024-01-17 19:56:00 40.28 kg/m2 [facility] Oxygen saturation in Arterial blood by Pulse oximetry 2024-01-17 19:56:00 98 /min [facility] Systolic blood pressure 2023-08-24 15:44:00 132 mm[Hg] [facility] Diastolic blood pressure 2023-08-24 15:44:00 96 mm[Hg] [facility] Heart rate 2023-08-24 15:44:00 86 /min Unive [facility] Body temperature 2023-08-24 15:44:00 36.67 Nadine [facility] Body height 2023-08-24 15:44:00 182.9 cm [facility] Body weight 2023-08-24 15:44:00 131.997 kg [facility] BMI 2023-08-24 15:44:00 39.47 kg/m2 [facility] Oxygen saturation in Arterial blood by Pulse oximetry 2023-08-24 15:44:00 98 /min [facility] Systolic blood pressure 2023-07-14 15:15:00 124 mm[Hg] [facility] Diastolic blood pressure 2023-07-14 15:15:00 92 mm[Hg] [facility] Heart rate 2023-07-14 15:15:00 74 /min Un[facility] Body temperature 2023-07-14 15:15:00 36.56 Nadine [facility] Respiratory rate 2023-07-14 15:15:00 16 /min [facility] Body height 2023-07-14 15:15:00 182.9 cm [facility] Body weight 2023-07-14 15:15:00 134.718 kg [facility] BMI 2023-07-14 15:15:00 40.28 kg/m2 [facility] Oxygen saturation in Arterial blood by Pulse oximetry 2023-07-14 15:15:00 98 /min [facility] Systolic blood pressure 2023-05-15 13:44:00 128 mm[Hg] [facility] Diastolic blood pressure 2023-05-15 13:44:00 81 mm[Hg] [facility] Heart rate 2023-05-15 13:44:00 78 /min Unive [facility] Respiratory rate 2023-05-15 13:44:00 12 /min [facility] Body height 2023-05-15 13:44:00 182.9 cm [facility] Body weight 2023-05-15 13:44:00 131.997 kg [facility] BMI 2023-05-15 13:44:00 39.47 kg/m2 [facility] Oxygen saturation in Arterial blood by Pulse oximetry 2023-05-15 13:44:00 98 /min [facility] Systolic blood pressure 2023-04-16 13:26:00 120 mm[Hg] [facility] Diastolic blood pressure 2023-04-16 13:26:00 85 mm[Hg] [facility] Heart rate 2023-04-16 13:26:00 81 /min Unive [facility] Respiratory rate 2023-04-16 13:26:00 18 /min [facility] Body height 2023-04-16 13:26:00 182.9 cm [facility] Body weight 2023-04-16 13:26:00 131.634 kg [facility] BMI 2023-04-16 13:26:00 39.36 kg/m2 [facility] Oxygen saturation in Arterial blood by Pulse oximetry 2023-04-16 13:26:00 98 /min [facility] Systolic blood pressure 2023-01-30 13:23:00 129 mm[Hg] [facility] Diastolic blood pressure 2023-01-30 13:23:00 84 mm[Hg] [facility] Heart rate 2023-01-30 13:23:00 83 /min Unive [facility] Body height 2023-01-30 13:23:00 182.9 cm [facility] Body weight 2023-01-30 13:23:00 132.224 kg [facility] BMI 2023-01-30 13:23:00 39.53 kg/m2 [facility] Oxygen saturation in Arterial blood by Pulse oximetry 2023-01-30 13:23:00 98 /min [facility] Systolic blood pressure 2022-12-13 18:35:00 116 mm[Hg] [facility] Diastolic blood pressure 2022-12-13 18:35:00 83 mm[Hg] [facility] Heart rate 2022-12-13 18:35:00 75 /min [facility] Body temperature 2022-12-13 18:35:00 36.78 Nadine [facility] Body height 2022-12-13 18:35:00 182.9 cm [facility] Body weight 2022-12-13 18:35:00 130.092 kg [facility] BMI 2022-12-13 18:35:00 38.90 kg/m2 [facility] Oxygen saturation in Arterial blood by Pulse oximetry 2022-12-13 18:35:00 97 /min [facility] Body temperature 2022-12-08 14:07:00 36.33 Nadine [facility] Body height 2022-12-08 14:07:00 182.9 cm [facility] 2022-12-08 14:07:00 128.232 kg [facility] BMI 2022-12-08 14:07:00 38.34 kg/m2 [facility] Systolic blood pressure 2022-11-13 16:40:00 122 mm[Hg] [facility] Diastolic blood pressure 2022-11-13 16:40:00 81 mm[Hg] [facility] Heart rate 2022-11-13 16:40:00 80 /min Unive [facility] Body temperature 2022-11-13 16:40:00 36.94 Nadine [facility] Body height 2022-11-13 16:40:00 182.9 cm [facility] Oxygen saturation in Arterial blood by Pulse oximetry 2022-11-13 16:40:00 96 /min [facility] Body temperature 2022-10-13 15:00:00 36.22 Nadine [facility] Body height 2022-10-13 15:00:00 182.9 cm [facility] Body weight 2022-10-13 15:00:00 128.368 kg [facility] BMI 2022-10-13 15:00:00 38.38 kg/m2 [facility] Systolic blood pressure 2022-10-02 19:59:00 128 mm[Hg] [facility] Diastolic blood pressure 2022-10-02 19:59:00 78 mm[Hg] [facility] Heart rate 2022-10-02 19:59:00 92 /min Unive [facility] Respiratory rate 2022-10-02 19:59:00 20 /min [facility] Body height 2022-10-02 19:59:00 182.9 cm [facility] Body weight 2022-10-02 19:59:00 130.636 kg [facility] BMI 2022-10-02 19:59:00 39.06 kg/m2 [facility] Oxygen saturation in Arterial blood by Pulse oximetry 2022-10-02 19:59:00 98 /min [facility] Systolic blood pressure 2022-09-13 18:12:00 129 mm[Hg] [facility] Diastolic blood pressure 2022-09-13 18:12:00 92 mm[Hg] [facility] Heart rate 2022-09-13 18:11:00 84 /min Unive [facility] Body height 2022-09-13 18:11:00 182.9 cm [facility] Body weight 2022-09-13 18:11:00 133.902 kg [facility] BMI 2022-09-13 18:11:00 40.04 kg/m2 [facility] Oxygen saturation in Arterial blood by Pulse oximetry 2022-09-13 18:11:00 97 /min [facility] Systolic blood pressure 2022-08-22 15:45:00 128 mm[Hg] [facility] Diastolic blood pressure 2022-08-22 15:45:00 84 mm[Hg] [facility] Heart rate 2022-08-22 15:44:00 81 /min Unive [facility] Body temperature 2022-08-22 15:44:00 36.83 Nadine [facility] Body height 2022-08-22 15:44:00 182.9 cm [facility] Body weight 2022-08-22 15:44:00 132.632 kg [facility] BMI 2022-08-22 15:44:00 39.66 kg/m2 [facility] Oxygen saturation in Arterial blood by Pulse oximetry 2022-08-22 15:44:00 97 /min [facility] Systolic blood pressure 2022-07-13 18:24:00 128 mm[Hg] [facility] Diastolic blood pressure 2022-07-13 18:24:00 89 mm[Hg] [facility] Heart rate 2022-07-13 18:24:00 89 /min Unive [facility] Body height 2022-07-13 18:24:00 182.9 cm [facility] Body weight 2022-07-13 18:24:00 126.916 kg [facility] BMI 2022-07-13 18:24:00 37.95 kg/m2 [facility] Oxygen saturation in Arterial blood by Pulse oximetry 2022-07-13 18:24:00 97 /min Danielson o [facility] Procedures Procedure Date / Time Performed Performing Clinician Source POCT SARS-COV-2 ANTIGEN (BINAX NOW) 2023-08-24 16:02:00 Enedina Henderson [facility] POCT MOLECULAR FLU 2023-08-24 15:59:00 Unknown, Attend ing [facility] ASSIGNMENT OF BENEFITS 2023-08-24 15:27:20 Docto r Unassigned, Kulm [facility] PATIENT QUESTIONNAIRE 2023-05-15 05:01:00 Doctor Unassigned, Kulm [facility] XR SPINE THORACIC 4 VW 2023-04-16 13:59:48 Irwin Chairez [facility] POCT URINALYSIS 2022-12-13 19:02:00 Sergey Chairez [facility] PATIENT FINANCIAL POLICY 2022-10-02 19:46:51 Doctor Unassigned, Kulm [facility] ASSIGNMENT OF BENEFITS 2022-09-14 13:48:47 Docto r Unassigned, Kulm [facility] POCT SARS-COV-2 ANTIGEN (BINAX NOW) 2022-08-22 16:15:00 Nia Mon [facility] POCT MOLECULAR FLU 2022-08-22 16:12:00 Elieser Nia [facility] CONSENT/REFUSAL FOR DIAGNOSIS AND TREATMENT 2022-08-22 15:31:36 Doctor Unassigned, Kulm [facility] Encounters Start Date/Time End Date/Time Encounter Type Admission Type Attending Clinicians Care Facility Care Department Encounter ID Source 2024-09-26 15:07:01 Outpatient Ousmane Aragon [facility] [id number] [facility] 2024-09-26 00:00:00 2024-09-26 00:00:00 OFFICE VISIT ESTAB PT LEVEL 3 [facility] [id number] [facility] 2024-07-07 10:20:00 2024-07-07 10:40:00 Urgent Care Mj Levin Unknown, Attending [facility] 1.2114 350.1.13.10 4.2.7.2.686 [id number] [facility] 2024-07-07 10:20:00 2024-07-07 10:20:00 Outpatient R LEVINMEGHNAIN [facility] [id number] [facility] 2024-06-23 00:00:00 2024-06-23 14:20:50 Telephone Elvin [facility] hospital[facility] 1.114 350.1.13.10 4.2.7.2.686 [id number] [facility] 2024-06-13 00:00:00 2024-06-16 06:23:15 Telephone Elvin [facility]IE?[facility] 1.114 350.1.13.10 4.2.7.2.686 [id number] [facility] 2024-03-20 15:15:00 2024-03-20 16:45:46 Outpatient R ELVIN SERGEY [facility] [id number] [facility] 2024-03-20 15:15:00 2024-03-20 16:45:46 Office Visit Elvin [facility] 1.114 350.1.13.10 4.2.7.2.686 [id number] [facility] 2024-03-14 11:00:00 2024-03-14 11:15:00 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 1.2.114 350.1.13.10 4.2.7.2.686 [id number] [facility] 2024-03-14 09:30:00 2024-03-14 10:00:00 Office Visit Mariely Marcus [facility] SPECIAL[facility] CARE 1..840.114 350.1.13.10 4.2.7.2.686 [id number] [facility] 2024-03-14 09:30:00 2024-03-14 09:22:40 Outpatient R MARIELY MARCUS [facility] [id number] [facility] 2024-02-04 12:00:00 2024-02-04 12:00:00 Outpatient R OLEGARIO MEEK [facility] [id number] [facility] 2024-01-17 15:00:00 2024-01-17 16:43:17 [id number] [facility] 2024-01-17 15:00:00 2024-01-17 15:15:00 Office Visit Elvin [facility] 1..840.114 350.1.13.10 4.2.7.2.686 [id number] [facility] 2023-10-07 00:00:00 2023-10-07 00:00:00 Refill Elvin Critical access hospitalE?[facility] 1..840.114 350.1.13.10 4.2.7.2.686 [id number] [facility] 2023-08-24 09:20:00 2023-08-24 10:11:46 Outpatient R ENEDINA HENDERSON [facility] [id number] [facility] 2023-08-24 09:20:00 2023-08-24 10:11:46 Urgent Care Enedina Henderson Unknown, Attending [facility] OFFICE BU[facility] 1.840.114 350.1.13.10 4.2.7.2.686 [id number] [facility] 2023-08-24 00:00:00 2023-08-24 00:00:00 Orders Only Doctor Unassigned, Kulm [facility] 1.2840.114 350.1.13.10 4.2.7.2.686 [id number] [facility] 2023-08-17 09:30:00 2023-08-17 09:30:00 Outpatient R FAYE NICHOLS [facility] [id number] [facility] 2023-07-14 09:00:00 2023-07-14 09:44:50 Outpatient R RENY BIRD [facility] [id number] [facility] 2023-07-14 09:00:00 2023-07-14 09:44:50 Urgent Care Reny Bird Unknown, Attending [facility] OFF[facility] 1..114 350.1.13.10 4.2.7.2.686 [id number] [facility] 2023-05-15 09:00:00 2023-05-15 10:25:39 Outpatient R FAYE NICHOLS [facility] [id number] [facility] 2023-05-15 09:00:00 2023-05-15 10:25:39 Office Visit Faye Nichols [facility] 1..114 350.1.13.10 4.2.7.2.686 [id number] [facility] 2023-05-15 00:00:00 2023-05-15 00:00:00 Orders Only Doctor Unassigned, Kulm [facility] 1.840.114 350.1.13.10 4.2.7.2.686 [id number] [facility] 2023-05-03 00:00:00 2023-05-03 00:00:[address] [facility] 1.2.840.114 350.1.13.10 4.2.7.2.686 [id number] [facility] 2023-04-25 00:00:00 2023-04-25 00:00:[address] [facility] 1.2.840.114 350.1.13.10 4.2.7.2.686 [id number] [facility] 2023-04-23 00:00:00 2023-04-23 00:00:[address] 1.2.840.114 350.1.13.10 4.2.7.2.686 [id number] [facility] 2023-04-16 08:44:04 2023-04-16 23:59:00 Hospital Encounter Sergey [facility] 1.2.840.114 350.1.13.10 4.2.7.2.686 [id number] [facility] 2023-04-16 08:44:04 2023-04-16 23:59:00 Outpatient R CHAIREZ, SERGEY [facility] [id number] [facility] 2023-04-16 08:30:00 2023-04-16 08:42:38 Office [facility] Sergey [facility] 1.2.840.114 350.1.13.10 4.2.7.2.686 [id number] [facility] 2023-04-09 12:00:00 2023-04-09 12:00:00 Outpatient R CHAIREZSERGEY [facility] [id number] [facility] 2023-01-30 08:45:00 2023-01-30 09:00:00 Office Visit Sergey Chairez [facility]IE?[facility] 1.2.840.114 350.1.13.10 4.2.7.2.686 [id number] [facility] 2023-01-30 08:45:00 2023-01-30 08:45:00 Outpatient R SERGEY CHAIREZ [facility] [id number] [facility] 2023-01-30 00:00:00 2023-01-30 00:00:00 Letter (Out) Elvin [facility] access hospitalE?[facility] 1.2.840.114 350.1.13.10 4.2.7.2.686 [id number] [facility] 2023-01-03 08:00:00 2023-01-03 08:00:00 Outpatient R JOSÉ LUIS REDDING [facility] [id number] [facility] 2022-12-25 09:45:00 2022-12-25 09:45:00 Outpatient R JOSÉ LUIS REDDING [facility] [id number] [facility] 2022-12-13 13:45:00 2022-12-13 14:31:45 Outpatient R SERGEY CHAIREZ [facility] [id number] [facility] 2022-12-13 13:45:00 2022-12-13 14:31:45 Office Visit Elvin [facility]E?[facility] 1.2.840.114 350.1.13.10 4.2.7.2.686 [id number] [facility] 2022-12-08 09:15:00 2022-12-08 09:42:22 Outpatient R GUILLERMINA SMALL [facility] [id number] [facility] 2022-12-08 09:15:00 2022-12-08 09:42:22 Office Visit Guillermina Small [facility] PRIMARY CARE PAVILLION 1.20.114 350.1.13.10 4.2.7.2.686 [id number] [facility] 2022-11-21 16:00:00 2022-11-21 16:00:00 Outpatient R GUILLERMINA SMALL [facility] [id number] [facility] 2022-11-13 11:30:00 2022-11-13 12:39:13 Outpatient R LEATHA PERALTA [facility] [id number] [facility] 2022-11-13 12:00:00 2022-11-13 12:15:00 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 Visit Lab, Kenney - Gomez Peralta [facility] MED[facility] OFFICE BUILD[facility] 1.84.114 350.1.13.10 4.2.7.2.686 [id number] [facility] 2022-11-13 11:30:00 2022-11-13 12:00:00 Office Visit [facility] 1.84.114 350.1.13.10 4.2.7.2.686 [id number] [facility] 2022-11-06 16:00:00 2022-11-06 16:43:25 Ancillary Visit Joseph Yañez Oluwatosin A [facility] PROFESSIO NAL BUILDING 1.84.114 350.1.13.10 4.2.7.2.686 [id number] [facility] 2022-10-26 15:15:00 2022-10-26 16:00:00 Ancillary Visit Joseph Yañez Oluwatosin A [facility] PROFESSIO NAL BUILDING 1.2.840.114 350.1.13.10 4.2.7.2.686 [id number] [facility] 2022-10-26 15:15:00 2022-10-26 15:15:00 Outpatient R GUILLERMINA SMALL [facility] [id number] [facility] 2022-10-18 07:15:00 2022-10-18 08:55:03 Outpatient R SERGEY CHAIREZ [facility] [id number] [facility] 2022-10-18 07:15:00 2022-10-18 08:55:03 Ancillary Visit Vanna Calder[facility] 1.20.114 350.1.13.10 4.2.7.2.686 [id number] [facility] 2022-10-17 00:00:00 2022-10-17 00:00:00 Patient Secure Msg Doctor Unassigned, Kulm [facility] 1.2840.114 350.1.13.10 4.2.7.2.686 [id number] [facility] 2022-10-13 11:04:53 2022-10-13 23:59:00 Hospital Encounter Guillermina Small [facility] PR[facility] C[facility] PAVILLION 1.0.114 350.1.13.10 4.2.7.2.686 [id number] [facility] 2022-10-13 08:45:00 2022-10-13 10:48:40 Outpatient R GUILLERMINA SMALL [facility] [id number] [facility] 2022-10-13 08:45:00 2022-10-13 10:48:40 Office Visit Guillermina Small [facility]AV[facility] 1.0.114 350.1.13.10 4.2.7.2.686 [id number] [facility] 2022-10-02 15:15:00 2022-10-02 15:30:00 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 Visit Lab, Kenney Dyer Elvin [facility] OFF[facility] BUILD[facility] 1.2840.114 350.1.13.10 4.2.7.2.686 [id number] [facility] 2022-10-02 15:00:00 2022-10-02 15:15:00 Office Visit Elvin [facility] 1..114 350.1.13.10 4.2.7.2.686 [id number] [facility] 2022-10-02 15:00:00 2022-10-02 15:11:44 Outpatient R ELVIN [facility] [id number] [facility] 2022-10-02 00:00:00 2022-10-02 00:00:00 Orders Only Doctor Unassigned, Kulm [facility] 1.0.114 350.1.13.10 4.2.7.2.686 [id number] [facility] 2022-09-26 00:00:00 2022-09-26 00:00:00 Telephone Elvin [facility] OFF[facility] BUILDING 1.84.114 350.1.13.10 4.2.7.2.686 [id number] [facility] 2022-09-15 00:00:00 2022-09-15 00:00:00 Patient Secure Msg Doctor Unassigned, Kulm [facility] 1.20.114 350.1.13.10 4.2.7.2.686 [id number] [facility] 2022-09-14 07:45:00 2022-09-14 08:00:00 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 Visit Lab, Kenney Whalen Benita Lynn [facility] 1.84.114 350.1.13.10 4.2.7.2.686 [id number] [facility] 2022-09-14 07:45:00 2022-09-14 07:45:00 Outpatient R BENITA WHALEN [facility] [id number] [facility] 2022-09-14 00:00:00 2022-09-14 00:00:00 Orders Only Doctor Unassigned, Kulm [facility] 1.114 350.1.13.10 4.2.7.2.686 [id number] [facility] 2022-09-13 12:15:00 2022-09-13 12:27:42 Office Visit Sergey Chairez [facility] OFFICE BUILDING 1.84.114 350.1.13.10 4.2.7.2.686 [id number] [facility] 2022-09-13 12:15:00 2022-09-13 12:15:00 Outpatient R SERGEY CHAIREZ [facility] [id number] [facility] 2022-08-22 09:20:00 2022-08-22 10:32:00 Outpatient R NIA MON [facility] [id number] [facility] 2022-08-22 09:20:00 2022-08-22 10:32:00 Office Visit Elieser [facility] OFFICE BUILDING 1.84114 350.1.13.10 4.2.7.2.686 [id number] [facility] 2022-08-22 00:00:00 2022-08-22 00:00:00 Orders Only Doctor Unassigned, Kulm [facility] 1..114 350.1.13.10 4.2.7.2.686 [id number] [facility] 2022-07-20 00:00:00 2022-07-20 00:00:00 [facility] 1.2.840.114 350.1.13.10 4.2.7.2.686 [id number] [facility] 2022-07-13 12:30:00 2022-07-13 12:45:00 [facility] 1..840.114 350.1.13.10 4.2.7.2.686 [id number] [facility] 2022-07-13 12:30:00 2022-07-13 12:30:00 Outpatient R SERGEY CHAIREZ [facility] [id number] [facility] 2021-07-19 10:45:00 2021-07-19 11:00:00 Laboratory Only Only, Charlette Fam Cbc Test Benita Whalen [facility] 1..840.114 350.1.13.10 4.2.7.2.686 [id number] [facility] 2021-07-19 10:45:00 2021-07-19 10:45:00 Outpatient R BENITA WHALEN [facility] [id number] [facility] 2021-07-19 10:45:00 2021-07-19 10:45:00 Outpatient R BENITA WHALEN [facility] [id number] [facility] 2021-06-29 14:30:00 2021-06-29 15:28:18 Outpatient BENITA FARRELL [facility] [id number] [facility] 2021-06-29 14:30:00 2021-06-29 15:28:18 Outpatient BENITA FARRELL [facility] [id number] [facility] 2021-06-29 14:22:28 2021-06-29 15:28:18 Office Visit Benita Whalen [facility] 1.114 350.1.13.10 4.2.7.2.686 [id number] [facility] 2021-06-29 14:30:00 2021-06-29 14:30:00 Outpatient R BENITA WHALEN [facility] [id number] [facility] 2021-02-17 00:00:00 2021-02-17 00:00:00 Letter (Out) Lela Romero [facility] Building 1.114 350.1.13.10 4.2.7.2.686 [id number] [facility] 2021-02-15 07:57:18 2021-02-15 08:12:18 Office Visit Lela Romero [facility] Office Building [facility] 1.114 350.1.13.10 4.2.7.2.686 [id number] [facility] 2021-02-15 08:00:00 2021-02-15 08:00:00 Outpatient R LELA ROMERO [facility] [id number] [facility] 2021-02-15 00:00:00 2021-02-15 00:00:00 Orders Only Doctor Unassigned, Kulm [facility] 1.114 350.1.13.10 4.2.7.2.686 [id number] [facility] 2021-02-15 00:00:00 2021-02-15 00:00:00 Letter (Out) Lela Romero [facility] 1.114 350.1.13.10 4.2.7.2.686 [id number] [facility] 2020-10-28 08:00:00 2020-10-28 08:00:00 Outpatient JESICA SOTOMAYOR [facility] [id number] [facility] 2020-10-07 08:10:00 2020-10-07 08:10:00 Outpatient JESICA SOTOMAYOR [facility] [id number] [facility] 2020-09-29 08:57:02 2020-09-29 09:12:02 Office Visit Elvin [facility] Office [facility] .114 350.1.13.10 4.2.7.2.686 [id number] [facility] 2020-09-29 09:00:00 2020-09-29 09:00:00 [facility] [id number] 2020-07-05 14:18:49 2020-07-05 14:42:05 Laboratory Only Lab, Adc Fam Pob Drea Mills [facility] 1.114 350.1.13.10 4.2.7.2.686 [id number] [facility] 2020-07-05 14:20:00 2020-07-05 14:20:00 Outpatient R [facility] [id number] [facility] 2020-03-09 00:00:00 2020-03-09 00:00:00 Patient Secure Msg Doctor Unassigned, Kulm [facility] 1. 350.1.13.10 4.2.7.2.686 [id number] [facility] 2020-03-09 00:00:00 2020-03-09 00:00:00 Telephone Benita Whalen [facility] 1.114 350.1.13.10 4.2.7.2.686 [id number] [facility] 2020-03-09 00:00:00 2020-03-09 00:00:00 Letter (Out) Deysi Posadas [facility] 1.114 350.1.13.10 4.2.7.2.686 [id number] [facility] 2020-03-08 08:44:47 2020-03-08 09:04:47 Laboratory Only Lab, Adc Fam Pob I Drea Vazquez [facility] 1.114 350.1.13.10 4.2.7.2.686 [id number] [facility] 2020-03-08 08:40:00 2020-03-08 08:40:00 Outpatient R [facility] [id number] [facility] 2020-01-14 14:40:00 2020-01-14 14:40:00 Outpatient R BENITA WHALEN [facility] [id number] [facility] 2020-01-14 14:12:06 2020-01-14 14:32:06 Urgent Care Pob1, Acute Care Clinic Benita Whalen [facility] 1.84.114 [id number] [id number] [id number] [facility] 2019-11-17 11:30:00 2019-11-17 11:30:00 Outpatient R LELA ROMERO [facility] [id number] [facility] 2019-09-04 00:00:00 2019-09-04 00:00:00 Telephone Benita Whalen [facility] 1.114 350.1.13.10 [id number] [id number] [facility] 2019-08-28 00:00:00 2019-08-28 00:00:00 Telephone Benita Whalen [facility] [id number] [id number] 4.2.7.2.686 [id number] [facility] 2019-08-27 17:27:00 2019-08-27 23:59:00 Hospital Encounter Benita Whalen [facility] [id number] [id number] 4.2.7.2.686 [id number] [facility] 2019-08-27 16:48:15 2019-08-27 17:17:56 Office Visit Benita Whalen [facility] [id number] [id number] 4.2.7.2.686 [id number] [facility] 2019-08-27 00:00:00 2019-08-27 00:00:00 Orders Only Doctor Unassigned, [facility] [id number] 350.1.13.10 4.2.7.2.686 [id number] [facility] 2019-08-27 00:00:00 2019-08-27 00:00:00 Letter (Out) Benita Whalen [facility] [id number] [id number] 4.2.7.2.686 [id number] [facility] 2019-08-06 00:00:00 2019-08-06 00:00:00 Orders Only Doctor Unassigned, Kulm [facility] [id number] 350.1.13.10 4.2.7.2.686 [id number] [facility] Results Test Description Test Time Test Comments Results Result Co mments [facility] (BINAX NOW)2023-08-24 16:02:00* Test Item Value Reference Range Interpretation Comme nts POCT SARS-COV-2 ANTIGEN (test code = 77374-4) Not Detected Not Detected On board controls acceptable with C Line (test code = 3574) Yes JUAN ANTONIO (test code = JUAN ANTONIO) accurate developme nt and interpretation of all internal controls Lab Interpretation (test code = 61343-1) Normal [facility] URINALYSIS W SPECIFIC [id number] 19:02:00* Test Item Value Reference Range Interpretation Comme nts POCT U SP GRAV (test code = 3255) 1.030 mg/dl 1.005-1.025 A POCT PH U (test code = 3254) 5 mg/dl 5-8 POCT U LEUK EST (test code = 3263) negative Negative - Negative POCT U NIT (test code = 3262) negative Negative - Negati ve POCT U PROT (test code = 3259) negative Negative - Negative POCT U GLU (test code = 3256) negative Negative - Negati ve POCT U KETONE (test code = 3258) negative Negative - Negative POCT U UROBILI (test code = 3260) normal 0.2-1 POCT U BILI (test code = 3261) negative Negative - Negative POCT U BLD (test code = 3257) negative Negative - Negati ve POCT U COLOR (test code = 3266) katia POCT U APPEAR (test code = 3267) clear Lab Interpretation (test cod e = 28899-4) Abnormal [facility] URINALYSIS W SPECIFIC [id number] 19:02:00* Test Item Value Reference Range Interpretation Comme nts POCT U SP GRAV (test code = 3255) 1.030 mg/dl 1.005-1.025 A POCT PH U (test code = 3254) 5 mg/dl 5-8 POCT U LEUK EST (test code = 3263) negative Negative - Negative POCT U NIT (test code = 3262) negative Negative - Negati ve POCT U PROT (test code = 3259) negative Negative - Negative POCT U GLU (test code = 3256) negative Negative - Negati ve POCT U KETONE (test code = 3258) negative Negative - Negative POCT U UROBILI (test code = 3260) normal 0.2-1 POCT U BILI (test code = 3261) negative Negative - Negative POCT U BLD (test code = 3257) negative Negative - Negati ve POCT U COLOR (test code = 3266) katia POCT U APPEAR (test code = 3267) clear Lab Interpretation (test cod e = 52859-0) Abnormal [facility] SARS-COV-2 ANTIGEN (BINAX NOW)2022-08-22 16:32:00* Test Item Value Reference Range Interpretation Comme nts POCT SARS-COV-2 ANTIGEN (polina t code = 36415-7) Not Detected Not Detected On board controls acceptable with C Line (test code = 3574) Yes [facility] SARS-COV-2 ANTIGEN (BINAX NOW)2022-08-22 16:32:00* Test Item Value Reference Range Interpretation Comme nts POCT SARS-COV-2 ANTIGEN (polina t code = 83319-2) Not Detected Not Detected On board controls acceptable with C Line (test code = 3574) Yes [facility] MOLECULAR [id number] 16:24:45* Test Item Value Reference Range Interpretation Comme nts POCT Molecular FluA (test co de = 23797-3) Negative Negative POCT Molecular FluB (test co de = 04925-9) Negative Negative Lab Interpretation (test cod e = 69102-2) Normal [facility] MOLECULAR [id number] 16:24:45* Test Item Value Reference Range Interpretation Comme nts POCT Molecular FluA (test co de = 70087-7) Negative Negative POCT Molecular FluB (test co de = 74658-2) Negative Negative Lab Interpretation (test cod e = 34963-5) Normal [facility] Notes Date/Time Note Provider Source 2024-06-23 11:58:50 Patient notified of all and requested for urology referral to be placed. Please review, complete, and sign if appropriate. [employer] Annia Beauchamp LVN [facility] 2024-06-23 11:18:59 ATC, VM not set up Annia Beauchamp LVN 06/23/2024 [facility] 2024-06-23 11:08:36 No, might need to see urology for more aggressive treatment [facility] 2024-06-23 10:43:29 Please review and advise. RELL 03/20/24 NOV not scheduled [facility] 2024-06-23 08:58:50 Pt wants to know if the prescription can be written for him to take it every week instead of every 2 weeks? He said he feels fatigued just after a few days. RX: testosterone cypionate 200 mg/mL injection Please Advise. [facility]/pharmacy #[id number] - [place], [place] - [address] [facility] [address] [facility] Meenakshi Hays [facility] 2024-06-13 09:36:51 Please review and sign if appropriate [facility] 2024-06-13 09:21:57 Ana Aguilar is a 44 year old male and is calling asking if the prescription for his testosterone cypionate 200 mg/mL injection can be transferred please. Please transfer from [facility] to [facility]. [facility] #[id number] - [place], [place] - [address] [facility] [address] [employer] Sonali Murray [facility] 2024-03-14 11:00:00 Images from the original note were not included. Venipuncture collection performed by clean technique on the left anticubitus. Total of 1 attempts were made. Slight pressure and a bandage/dressing were applied to the site(s). The patient experienced no complications. The following specimens were processed according to instructions and sent to [facility] laboratories per lab order on 03/14/2024 : LT BLUE SST 1 RED LAV 1 PPT DK GREEN (LiHep) DK GREEN (SodH) VALLE DK BLUE (K2) DK BLUE (S) ACD Blood Culture NIPT/NTD [facility] 2024-01-17 15:00:00 Addended by: SERGEY CHAIREZ MD on: 01/17/2024 03:10 PM Modules accepted: Orders [facility] 2023-10-08 07:56:09 Images from the original note were not included. Requested Renewals Name from pharmacy: SILDENAFIL 100 MG TABLET Will file in chart as: SILDENAFIL 100 mg tablet Sig: Take 1 tablet by mouth as needed for Other (sexual activity). Disp: 8 tablet Refills: 5 Start: 10/07/2023 Class: eRX Non-formulary For: Erectile dysfunction, unspecified erectile dysfunction type Last ordered: 1 year ago (10/02/2022) by Sergey Chairez MD Last refill: 04/26/2023 Rx #: [id number] Phosphodiesterase 5 Enzyme Inhibitor Iouopj7710/07/2023 11:27 AM Protocol Details ALT in normal range and within 360 days AST in normal range and within 360 days Cr in normal range and within 360 days K in normal range and within 360 days Na in normal range and within 360 days Valid encounter within last 12 months To be filled at: [facility]/pharmacy #[id number] - [place], [place] - [address] AT [facility] CMP NA (mmol/L) Date Value 09/14/2022 138 K (mmol/L) Date Value 09/14/2022 4.6 CALCIUM (mg/dL) Date Value 09/14/2022 9.0 CL (mmol/L) Date Value 09/14/2022 102 BUN (mg/dL) Date Value 09/14/2022 12 CREATININE (mg/dL) Date Value 09/14/2022 0.91 GLUCOSE (mg/dL) Date Value 09/14/2022 105 CO2 TOTAL (mmol/L) Date Value 09/14/2022 28 ALBUMIN (g/dL) Date Value 09/14/2022 4.3 T PROTEIN (g/dL) Date Value 09/14/2022 7.5 TOTAL BILI (mg/dL) Date Value 09/14/2022 0.7 ALT(SGPT) (U/L) Date Value 09/04/2016 41 ALTv (U/L) Date Value 09/14/2022 62 (H) AST(SGOT) (U/L) Date Value 09/14/2022 38 ALK PHOS (U/L) Date Value 09/14/2022 75 Recent Visits Date Type Provider Dept 04/16/23 Office Visit Sergey Chairez MD [facility] 01/30/23 Office Visit Sergey Chairez MD [facility] 12/13/22 Office Visit Sergey Chairez MD [facility] 11/13/22 Office Visit Leatha Peralta FNP [facility] 10/02/22 Office Visit Sergey Chairez MD [facility] 09/13/22 Office Visit Sergey Chairez MD [facility] 08/22/22 Office Visit Nia Mon MD [facility] 07/13/22 Office Visit Sergey Chairez MD [facility] Showing recent visits within past 540 days with a meds authorizing provider and meeting all other requirements Future Appointments No visits were found meeting these conditions. Showing future appointments within next 150 days with a meds authorizing provider and meeting all other requirements [facility]
--- NOTE | 2024-10-02 07:27 | EDPHYS ---
Physician Documentation [facility] Name: Lanre Garcia Age: 44 yrs Sex: Male : 1980 Arrival Date: 10/02/2024 Time: 07:04 Bed 12 Private MD: ED Physician Wilfrid Fuller HPI: 10/02 07:24 This 44 yrs old Male presents to ER via Unassigned with complaints of cough. rn 07:24 The patient or guardian reports cough. Onset: The symptoms/episode began/occurred 2 rn week(s) ago. Severity of symptoms: At their worst the symptoms were mild, in the emergency department the symptoms are unchanged. Modifying factors: The symptoms are alleviated by nothing, the symptoms are aggravated by nothing. The patient has not experienced similar symptoms in the past. The patient has been recently seen by a physician:. Patient reports cough for 2 weeks, completed course of amoxicillin and did not do anything. Reports still having sore throat, cough, mild shortness of breath. No chronic lung problems. No hemoptysis. No history of DVT or PE. No chest pain. No swelling.. Historical: - Allergies: 07:14 Tylenol-Codeine #3; aa5 - PMHx: 07:14 None; aa5 - PSHx: 07:14 None; aa5 - Immunization history:: Adult Immunizations unknown. - Infectious Disease History:: Denies. - Social history:: Smoking status: Patient denies any tobacco usage or history of. - Family history:: not pertinent. - Hospitalizations: : No recent hospitalization is reported. ROS: 07:24 Constitutional: Negative for fever, chills, and weight loss, Cardiovascular: Negative rn for chest pain, palpitations, and edema, Respiratory: Positive for cough Abdomen/GI: Negative for abdominal pain, nausea, vomiting, diarrhea, and constipation, Exam: 07:24 Constitutional: This is a well developed, well nourished patient who is awake, alert, rn and in no acute distress. ENT: Mild pharyngeal erythema and nasal congestion. No stridor. Uvula midline Neck: Nontender cervical lymphadenopathy present. Respiratory: No increased work of breathing, no retractions or nasal flaring. Vital Signs: 07:13 BP 121 / 92; Pulse 72; Resp 19 S; Temp 98; Pulse Ox 98% on R/A; Weight 133.81 kg (R); aa5 Height 6 ft. 0 in. (R); 07:13 Body Mass Index 40.01 (133.81 kg, 182.88 cm) aa5 MDM: 07:08 Medical Screening Exam initiated rn 07:26 Differential Diagnosis: Upper Respiratory Infection Viral Syndrome Pneumonia. Data rn reviewed: vital signs, nurses notes, and as a result, I will discharge patient. Counseling: I had a detailed discussion with the patient and/or guardian regarding the historical points, exam findings, and any diagnostic results supporting the discharge/admit diagnosis, the need for outpatient follow up, to return to the emergency department if symptoms worsen or persist or if there are any questions or concerns that arise at home. Special discussion: I discussed with the patient/guardian in detail that at this point there is no indication for admission to the hospital. It is understood, however, that if the symptoms persist or worsen the patient needs to return immediately for re-evaluation. Administered Medications: :45 Drug: LevOfloxacin PO 500 mg PO once Route: PO; aa5 07:45 Follow up: Response: Medication administered at discharge. 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
--- NOTE | 2024-10-02 07:27 | ER ---
Nurse's Notes [facility] Name: Lanre Gacria Age: 44 yrs Sex: Male : 1980 Arrival Date: 10/02/2024 Time: 07:04 Bed 12 Private MD: Diagnosis: Cough;Acute sinusitis, unspecified Presentation: 10/02 07:13 Chief complaint: Patient states: finished amoxicillin tx for sinus infection without aa5 improvement of symptoms. 07:13 Coronavirus screen: congestion, cough unrelated to allergies. Ebola Screen: Patient aa5 denies travel to an Ebola-affected area in the 21 days before illness onset. Onset of symptoms was 2024. 07:13 Method Of Arrival: Ambulatory aa5 07:13 Acuity: UMA 5 aa5 07:13 Initial Sepsis Screen: Does the patient meet any 2 criteria? No. Patient's initial aa5 sepsis screen is negative. Does the patient have a suspected source of infection? No. Patient's initial sepsis screen is negative. Risk Assessment: Do you want to hurt yourself or someone else? Patient reports no desire to harm self or others. Historical: - Allergies: 07:14 Tylenol-Codeine #3; aa5 - PMHx: 07:14 None; aa5 - PSHx: 07:14 None; aa5 - Immunization history:: Adult Immunizations unknown. - Infectious Disease History:: Denies. - Social history:: Smoking status: Patient denies any tobacco usage or history of. - Family history:: not pertinent. - Hospitalizations: : No recent hospitalization is reported. Screenin:13 [facility] ED Fall Risk Assessment (Adult) History of falling in the last 3 months, aa5 including since admission No falls in past 3 months (0 pts) Confusion or Disorientation No (0 pts) Intoxicated or Sedated No (0 pts) Impaired Gait No (0 pts) Mobility Assist Device Used No (0 pt) Altered Elimination No (0 pt) Score/Fall Risk Level 0 - 2 = Low Risk Oriented to surroundings, Maintained a safe environment, Educated pt \T\ family on fall prevention, incl call for assistance when getting out of bed, Assessed \T\ reinforced patient's understanding of fall precautions. Abuse screen: Denies threats or abuse. Nutritional screening: No deficits noted. Tuberculosis screening: No symptoms or risk factors identified. Assessment: 07:45 Reassessment: Patient is alert, oriented x 3, equal unlabored respirations, skin aa5 warm/dry/pink. Vital Signs: 07:13 BP 121 / 92; Pulse 72; Resp 19 S; Temp 98; Pulse Ox 98% on R/A; Weight 133.81 kg (R); aa5 Height 6 ft. 0 in. (R); 07:13 Body Mass Index 40.01 (133.81 kg, 182.88 cm) aa5 ED Course: 07:07 Patient arrived in ED. mr 07:08 Wilfrid Fuller MD is Attending Physician. rn 07:14 Arm band placed on. aa5 07:14 Patient has correct armband on for positive identification. Bed in low position. Call aa5 light in reach. Side rails up X 1. 07:27 Qing Gross, RN is Primary Nurse. aa5 07:29 Triage completed. aa5 07:45 No provider procedures requiring assistance completed. Patient did not have IV access aa5 during this emergency room visit. Administered Medications: :45 Drug: LevOfloxacin PO 500 mg PO once Route: PO; aa5 07:45 Follow up: Response: Medication administered at discharge. aa5 07:45 Follow up: Response: No adverse reaction aa5 Medication: 07:13 VIS not applicable for this client. aa5 Outcome: :27 Discharge ordered by . rn 07:45 Discharged to home ambulatory, aa5 07:45 Condition: stable 07:45 Discharge instructions given to patient, Instructed on discharge instructions, follow aa5 up and referral plans. medication usage, Demonstrated understanding of instructions, follow-up care, medications, Prescriptions given X 1, Signatures: Melissa Vuong, Reg Reg mr Wilfrid Fuller MD MD rn Calderon, Audri, RN RN aa5 Corrections: (The following items were deleted from the chart) 16: 07:45 Patient left the ED. aa5 aa5 16: 07:44 Discharged to home ambulatory, aa5 aa5 16: 07:44 Condition: stable aa5 aa5 16: 07:44 Discharge instructions given to patient, Instructed on discharge instructions, aa5 follow up and referral plans. medication usage, Demonstrated understanding of instructions, follow-up care, medications, Prescriptions given X 1, aa5
[2024-10-02] MEDS ORDERED: levoFLOXacin 250 MG TAB ONE ×3 (07:38→07:40)
[2024-10-02 07:50] VITALS: BP 121/92; TEMP 98; O2SAT 98
== END 2024-10-02 07:45 | disposition home or self-care (01) ==
LOC: ER 07:04
DX: J01.90 Acute sinusitis, unspecified (principal)
CPT/HCPCS: 99283